=== PATIENT | male | born 1995 | race Caucasian/White ===

== ENCOUNTER 2020-03-02 10:16 | Emergency (ER) | payer SELFPAY ==
[~2020-03-02] VITALS: Ht 188 cm; Wt 136.4 kg
[~2020-03-02 10:16] MED LIST: DOXY-225 PO
[2020-03-02] MEDS ORDERED: acetaminophen 325mg tablet PO ONE (10:55)
[2020-03-02] MEDS ORDERED: ibuprofen tablet 400 MG TABLET PO ONE (10:55)
[2020-03-02 11:02] LABS: CLARITY,URINE CLEAR (Clear); COLOR,URINE YELLOW (Yellow); GLUCOSE, URINE NEGATIVE (Neg); KETONES,URINE NEGATIVE (Neg); LEUKOCYTE ESTERASE ,URINE NEGATIVE (Neg); NITRITES, URINE NEGATIVE (Neg); OCCULT BLOOD,URINE NEGATIVE (Neg); PH,URINE 7.5 (4.8-8.0); PROTEIN,URINE NEGATIVE (Neg); UROBILINOGEN,URINE 0.2 E.U/dL (0.2-1.0)
[2020-03-02 11:03] LABS: UA COLLECTION TYPE CLN CATCH MIDSTREAM
[2020-03-02 11:28] LABS: BASOPHILS % (AUTO) 0.3 % (0-1); EOSINOPHILS % (AUTO) 0.5 % (0-6); HEMATOCRIT 44.8 % (42.0-52.0); HEMOGLOBIN 15.3 g/dl (14.0-17.9); LYMPHOCYTES # (AUTO) 1.9 X10'3 (1.1-4.8); LYMPHOCYTES % (AUTO) 22.6 % (21-51); MEAN CORPUSCULAR HEMOGLOBIN 32.3 PG (27.0-31.0); MEAN CORPUSCULAR HGB CONC 34.2 g/dL (33.0-36.5); MEAN CORPUSCULAR VOLUME 94.5 FL (78-98); MEAN PLATELET VOLUME 7.7 FL (7.4-10.4); MONOCYTES # (AUTO) 0.6 X10'3 (0-0.9); MONOCYTES % (AUTO) 7.3 % (2-12); NEUTROPHILS # (AUTO) 5.8 X10'3 (1.8-7.7); NEUTROPHILS % (AUTO) 69.3 % (42-75); PLATELET COUNT 251 X10'3 (140-440); RED BLOOD COUNT 4.74 X10'6 (4.70-6.10); RED CELL DISTRIBUTION WIDTH 12.8 % (11.5-14.5); WHITE BLOOD COUNT 8.4 X10'3 (4.5-11.0)
[2020-03-02 11:40] LABS: ALANINE AMINOTRANSFERASE 60 U/L (12-78); ALBUMIN 4.5 G/DL (3.4-5.0); ALBUMIN/GLOBULIN RATIO 1.3 (1.1-1.5); ALKALINE PHOSPHATASE 58 IU/L (46-116); ANION GAP 8 (8-16); ASPARTATE AMINO TRANSFERASE 26 U/L (10-37); BILIRUBIN,TOTAL 0.9 MG/DL (0.1-1.0); BLOOD UREA NITROGEN 8 MG/DL (7-18); CALCIUM 9.2 MG/DL (8.5-10.1); CHLORIDE 105 MMOL/L (99-107); GLUCOSE 102 MG/DL (70-104); LIPASE 148 U/L (73-393); POTASSIUM 4.4 MMOL/L (3.5-5.1); SODIUM 140 MMOL/L (135-145); TOTAL CARBON DIOXIDE 27.1 MMOL/L (24-32); TOTAL PROTEIN 7.9 G/DL (6.4-8.2); eGFR 90 ML/MIN
[2020-03-02 12:20] VITALS: BP 132/96
== END 2020-03-02 12:24 | disposition home or self-care (01) ==
LOC: ER 10:17
DX: R10.12 Left upper quadrant pain (principal); F12.90 Cannabis use, unspecified, uncomplicated; Z72.89 Other problems related to lifestyle; Z88.2 Allergy status to sulfonamides; Z88.8 Allergy status to other drugs, medicaments and biological substances; Z79.2 Long term (current) use of antibiotics
CPT/HCPCS: 36415; 80053; 81003; 83690; 85025; 99283

== ENCOUNTER 2023-11-21 16:39 | Emergency (ER) | payer OTHER ==
[~2023-11-21] VITALS: Ht 188 cm; Wt 143.0 kg
[2023-11-21] MEDS ORDERED: CEPH-585 PO (18:27)
[2023-11-21] MEDS ORDERED: NAPR-56 PO (18:27)
[2023-11-21 18:46] VITALS: BP 133/87; PULSE 70; RESP 18; TEMP 98; O2SAT 98
== END 2023-11-21 18:47 | disposition home or self-care (01) ==
LOC: ER 16:39
DX: S80.01XA Contusion of right knee, initial encounter (principal); F15.90 Other stimulant use, unspecified, uncomplicated; Z79.899 Other long term (current) drug therapy; Z72.89 Other problems related to lifestyle; Z88.8 Allergy status to other drugs, medicaments and biological substances; W01.0XXA Fall on same level from slipping, tripping and stumbling without subsequent striking against object, initial encounter; Y93.89 Activity, other specified; Y92.89 Other specified places as the place of occurrence of the external cause; Y99.8 Other external cause status
CPT/HCPCS: 73564; 99283; 99284; A6258; A6449